=== PATIENT | male | born 1945 | race Caucasian/White ===

== ENCOUNTER → 2017-07-28 | Outpatient (CLI) | payer OTHER ==
[~2017-07-28] MED LIST: ASPI-496 PO; INSU100V12 SC; LISI-167 PO; METF500T4 PO; PRAV40TA2 PO
== END | disposition home or self-care (01) ==
LOC: CVU 09:14
PROVIDERS: ATTEND Surgery Vascular Surgery
DX: I65.23 Occlusion and stenosis of bilateral carotid arteries (principal); I10 Essential (primary) hypertension; E11.9 Type 2 diabetes mellitus without complications; E78.00 Pure hypercholesterolemia, unspecified; M79.89 Other specified soft tissue disorders; Z87.891 Personal history of nicotine dependence
CPT/HCPCS: 93880

== ENCOUNTER 2018-04-26 14:59 | Inpatient (IN) | payer OTHER ==
[~2018-04-26] VITALS: Ht 182.9 cm; Wt 88.4 kg
[~2018-04-26 14:59] MED LIST changes: -METF500T4 PO; +METF500T5 PO
[2018-04-26] MEDS ORDERED: SODIUM CHLORIDE 0.9% 1,000ML IVBOLUS ONE (16:00)
[2018-04-26] MEDS ORDERED: SODIUM CHLORIDE FLUSH 10ML SYR IVF ONE (16:00)
[2018-04-26 16:07] LABS: BASOPHILS # (AUTO) 0.03 x10^3/uL (0-0.1); BASOPHILS % (AUTO) 0 % (0-1); EOSINOPHILS # (AUTO) 0.08 x10^3/uL (0-0.4); EOSINOPHILS % (AUTO) 1 % (1-7); LYMPHOCYTES # (AUTO) 0.83 x10^3/uL (1-3.4); LYMPHOCYTES % (AUTO) 7 % (22-44); MD NO; MEAN CORPUSCULAR HEMOGLOBIN 32.3 pg (27.5-34.5); MEAN CORPUSCULAR HGB CONC 34.1 g/dL (33.2-36.2); MEAN CORPUSCULAR VOLUME 94.7 fL (81-97); MEAN PLATELET VOLUME 7.6 fL (7.4-10.4); MONOCYTES # (AUTO) 0.63 x10^3/uL (0.2-0.8); MONOCYTES % (AUTO) 5 % (2-9); NEUTROPHILS # (AUTO) 11.32 x10^3/uL (1.8-6.8); NEUTROPHILS % (AUTO) 88 % (42-75); PLATELET COUNT 267 x10^3/uL (130-400); RED BLOOD COUNT 3.67 x10^6/uL (4.38-5.82); RED CELL DISTRIBUTION WIDTH 13.3 % (9.4-14.8)
[2018-04-26 16:16] LABS: INTERNATIONAL NORMALIZED RATIO 0.98 (0.93-1.1); PROTHROMBIN TIME 10.1 Seconds (9.6-11.5)
[2018-04-26 16:18] LABS: ALBUMIN 3.5 g/dL (3.4-5.0); ANION GAP 6 mmol/L (5-15); CALCIUM 8.6 mg/dL (8.5-10.1); CHLORIDE 109 mmol/L (98-107)
[2018-04-26 16:23] LABS: ALANINE AMINOTRANSFERASE 22 U/L (12-78); ALKALINE PHOSPHATASE 125 U/L (45-117); BILIRUBIN,TOTAL 0.4 mg/dL (0.2-1.0); CREATININE 2.24 mg/dL (0.7-1.3); TOTAL PROTEIN 6.8 g/dL (6.4-8.2); TROPONIN I < 0.015 ng/mL (0.000-0.045)
[2018-04-26] MEDS ORDERED: NOVOLOG MIX SC (16:51)
[2018-04-26 18:13] LABS: FREE T4 (FREE THYROXINE) 0.94 ng/dL (0.76-1.46); TROPONIN I < 0.015 ng/mL (0.000-0.045)
[2018-04-26 18:25] VITALS: BP 137/70
[2018-04-26] MEDS ORDERED: DEXTROSE 4 GM TAB.CHEW PO PRN (18:30)
[2018-04-26] MEDS ORDERED: POLYETHYLENE GLYCOL 17 GM PACKET PO PRN (18:30)
[2018-04-26] MEDS ORDERED: ONDANSETRON 2MG/ML, 2ML IVPush PRN (18:30)
[2018-04-26] MEDS ORDERED: GUAIFENESIN/DM 200-20MG, 10ML UDC PO PRN (18:30)
[2018-04-26] MEDS ORDERED: GLUCAGON 1 MG IM PRN (18:30)
[2018-04-26] MEDS ORDERED: morphine SULFATE 10 MG/ML, 1ML IVPush PRN (18:30)
[2018-04-26] MEDS ORDERED: DEXTROSE 50%, 50ML SYRINGE IVPush PRN (18:30)
[2018-04-26] MEDS ORDERED: ONDANSETRON ODT 4 MG PO PRN (18:30)
[2018-04-26] MEDS ORDERED: LABETALOL 5MG/ML, 20ML IVPush PRN (18:30)
[2018-04-26] MEDS: HYDROcodone/APAP 5/325 TABLET PO PRN (18:46)
[2018-04-26] MEDS: SODIUM CHLORIDE 0.9% 1,000 ML IV SCH (19:51)
[2018-04-26] MEDS: HEPARIN 5,000 UNITS/ML, 1ML SQ SCH (19:51)
[2018-04-26 20:00] VITALS: BP 140/62
[2018-04-26] MEDS: PRAVASTATIN 40 MG TABLET PO SCH (21:37)
[2018-04-26] MEDS: SODIUM CHLORIDE FLUSH 10ML SYR IVF SCH (21:37)
[2018-04-26] MEDS: INSULIN LISPRO 100 UNITS/ML, PEN SQ-INSULIN SCH (21:39)
[2018-04-26 21:47] VITALS: BP 129/64
[2018-04-26 23:32] LABS: TROPONIN I < 0.015 ng/mL (0.000-0.045)
[2018-04-26 23:46] LABS: MICROSCOPIC NOT IND
[2018-04-26 23:47] LABS: CULTURE INDICATED? NO
[2018-04-26 23:58] LABS: CREATININE,URINE RANDOM 68.1 mg/dL
[2018-04-27] VITALS (11 sets, daily range): BP systolic 117–158; BP diastolic 63–76
[2018-04-27] MEDS: HEPARIN 5,000 UNITS/ML, 1ML SQ SCH ×3 (02:39→17:33)
[2018-04-27] MEDS: SODIUM CHLORIDE 0.9% 1,000 ML IV SCH ×2 (02:39→10:26)
[2018-04-27] MEDS: HYDROcodone/APAP 5/325 TABLET PO PRN ×4 (02:42→18:19)
[2018-04-27 05:40] LABS: ALANINE AMINOTRANSFERASE 21 U/L (12-78); ALBUMIN 3.2 g/dL (3.4-5.0); ANION GAP 11 mmol/L (5-15); CALCIUM 8.6 mg/dL (8.5-10.1); CHLORIDE 107 mmol/L (98-107); CREATININE 1.76 mg/dL (0.7-1.3)
[2018-04-27 05:42] LABS: ALKALINE PHOSPHATASE 117 U/L (45-117); BILIRUBIN,TOTAL 0.3 mg/dL (0.2-1.0); TOTAL PROTEIN 6.4 g/dL (6.4-8.2)
[2018-04-27 06:00] LABS: BASOPHILS # (AUTO) 0.01 x10^3/uL (0-0.1); BASOPHILS % (AUTO) 0 % (0-1); EOSINOPHILS # (AUTO) 0.02 x10^3/uL (0-0.4); EOSINOPHILS % (AUTO) 0 % (1-7); LYMPHOCYTES # (AUTO) 0.79 x10^3/uL (1-3.4); LYMPHOCYTES % (AUTO) 9 % (22-44); MD NO; MEAN CORPUSCULAR HEMOGLOBIN 32.1 pg (27.5-34.5); MEAN CORPUSCULAR VOLUME 94.4 fL (81-97); MEAN PLATELET VOLUME 7.9 fL (7.4-10.4); MONOCYTES # (AUTO) 0.75 x10^3/uL (0.2-0.8); MONOCYTES % (AUTO) 9 % (2-9); NEUTROPHILS # (AUTO) 7.29 x10^3/uL (1.8-6.8); NEUTROPHILS % (AUTO) 82 % (42-75); PLATELET COUNT 239 x10^3/uL (130-400); RED BLOOD COUNT 3.54 x10^6/uL (4.38-5.82); RED CELL DISTRIBUTION WIDTH 13.3 % (9.4-14.8)
[2018-04-27] MEDS: ASPIRIN 81 MG TABLET EC PO SCH (07:53)
[2018-04-27] MEDS: INSULIN LISPRO 100 UNITS/ML, PEN SQ-INSULIN SCH ×4 (07:54→20:01)
[2018-04-27] MEDS: SODIUM CHLORIDE FLUSH 10ML SYR IVF SCH ×2 (07:56→20:02)
[2018-04-27] MEDS: SENNA/DOCUSATE TABLET PO SCH (07:56)
[2018-04-27] MEDS ORDERED: REGADENOSON 0.4 MG/5 ML SYRINGE ONE (11:44)
[2018-04-27] MEDS: D5%-0.45% NACL 1,000 ML IV SCH (13:35)
[2018-04-27] MEDS: PRAVASTATIN 40 MG TABLET PO SCH (20:00)
[2018-04-28] MEDS: HYDROcodone/APAP 5/325 TABLET PO PRN ×3 (00:35→08:27)
[2018-04-28 01:35] VITALS: BP 149/75
[2018-04-28] MEDS: D5%-0.45% NACL 1,000 ML IV SCH (02:08)
[2018-04-28] MEDS: HEPARIN 5,000 UNITS/ML, 1ML SQ SCH ×2 (02:09→09:43)
[2018-04-28 05:38] LABS: BASOPHILS # (AUTO) 0.02 x10^3/uL (0-0.1); BASOPHILS % (AUTO) 0 % (0-1); EOSINOPHILS # (AUTO) 0.11 x10^3/uL (0-0.4); EOSINOPHILS % (AUTO) 2 % (1-7); LYMPHOCYTES # (AUTO) 0.94 x10^3/uL (1-3.4); LYMPHOCYTES % (AUTO) 13 % (22-44); MD NO; MEAN CORPUSCULAR HEMOGLOBIN 32.3 pg (27.5-34.5); MEAN CORPUSCULAR HGB CONC 33.7 g/dL (33.2-36.2); MEAN CORPUSCULAR VOLUME 95.8 fL (81-97); MEAN PLATELET VOLUME 7.7 fL (7.4-10.4); MONOCYTES # (AUTO) 0.78 x10^3/uL (0.2-0.8); MONOCYTES % (AUTO) 11 % (2-9); NEUTROPHILS # (AUTO) 5.21 x10^3/uL (1.8-6.8); NEUTROPHILS % (AUTO) 74 % (42-75); PLATELET COUNT 234 x10^3/uL (130-400); RED BLOOD COUNT 3.49 x10^6/uL (4.38-5.82); RED CELL DISTRIBUTION WIDTH 12.9 % (9.4-14.8)
[2018-04-28 05:46] LABS: ALBUMIN 3.2 g/dL (3.4-5.0); ANION GAP 7 mmol/L (5-15); CALCIUM 8.2 mg/dL (8.5-10.1); CHLORIDE 108 mmol/L (98-107)
[2018-04-28 05:48] LABS: CREATININE 1.73 mg/dL (0.7-1.3)
[2018-04-28] MEDS: ASPIRIN 81 MG TABLET EC PO SCH (07:36)
[2018-04-28] MEDS: SODIUM CHLORIDE FLUSH 10ML SYR IVF SCH (07:37)
[2018-04-28] MEDS: INSULIN LISPRO 100 UNITS/ML, PEN SQ-INSULIN SCH (07:38)
[2018-04-28] MEDS: SENNA/DOCUSATE TABLET PO SCH (07:38)
[2018-04-28 08:09] LABS: HEMOGLOBIN A1C 8.8 % (4.2-6.3)
[2018-04-28 08:14] VITALS: BP_SYST 119; BP_SYST 123; BP_SYST 149; BP_DIAS 63; BP_DIAS 66; BP_DIAS 73
[2018-04-28] MEDS ORDERED: AMLODIPINE 2.5 MG TABLET PO SCH (09:30)
[2018-04-28] MEDS ORDERED: CHOL400T12 PO (10:48)
[2018-04-28] MEDS ORDERED: AMLO2.5T PO (10:49)
== END 2018-04-28 11:40 | disposition home or self-care (01) | DRG 73 ==
LOC: ED 16:32 → EDIP 17:14 → 4WST 18:06 → DCLOUNGE 04-28 11:35
PROVIDERS: ADMIT Internal Medicine; ATTEND Internal Medicine
DX: G90.8 Other disorders of autonomic nervous system (principal); N17.0 Acute kidney failure with tubular necrosis; R55 Syncope and collapse; W18.30XA Fall on same level, unspecified, initial encounter; E11.22 Type 2 diabetes mellitus with diabetic chronic kidney disease; E78.5 Hyperlipidemia, unspecified; I12.9 Hypertensive chronic kidney disease with stage 1 through stage 4 chronic kidney disease, or unspecified chronic kidney disease; N18.9 Chronic kidney disease, unspecified; D64.9 Anemia, unspecified; M54.9 Dorsalgia, unspecified; Z87.891 Personal history of nicotine dependence; Y93.89 Activity, other specified; Y92.89 Other specified places as the place of occurrence of the external cause; Y99.8 Other external cause status
CPT/HCPCS: 36415; 70450; 71250; 72110; 78452; 80048; 80053; 81003; 82040; 82306; 82436; 82570; 82962; 83036; 83690; 83735; 83880; 84100; 84133; 84300; 84439; 84443; 84484; 85025; 85610; 85730; 93005; 93017; 93306; 93880; 96360; 96361; J1644; J2785; A9502; C9898; J2270; J7030

== ENCOUNTER → 2018-05-12 | Outpatient (CLI) | payer OTHER ==
[~2018-05-12] MED LIST changes: +AMLO2.5T PO; +CHOL400T12 PO; +NOVOLOG MIX SC
== END | disposition home or self-care (01) ==
LOC: RAD 11:54
PROVIDERS: ATTEND Family Medicine
DX: M16.11 Unilateral primary osteoarthritis, right hip (principal); W19.XXXD Unspecified fall, subsequent encounter

== ENCOUNTER → 2019-11-25 | Outpatient (CLI) | payer MEDICARE, OTHER ==
[~2019-11-25] MED LIST changes: -AMLO2.5T PO; +AMLO2.5T5 PO; +METF500T17 PO; -METF500T5 PO
== END | disposition home or self-care (01) ==
LOC: CFH 13:28
PROVIDERS: ATTEND Surgery
DX: E04.1 Nontoxic single thyroid nodule (principal); E07.89 Other specified disorders of thyroid
CPT/HCPCS: 76536

== ENCOUNTER → 2019-12-22 | Outpatient (CLI) | payer MEDICARE ==
[~2019-12-22] MED LIST changes: +FINA5TAB4 PO; +INSU100I13 SQ; +INSU100V8 SQ; +NPH,100I4 SQ; +PROLASTIN PO; +SEMA1PEN SQ; +TAMS-11 PO
[2019-12-22 09:28] LABS: BASOPHILS # (AUTO) 0.02 x10^3/uL (0-0.1); BASOPHILS % (AUTO) 0 % (0-1); EOSINOPHILS # (AUTO) 0.17 x10^3/uL (0-0.4); EOSINOPHILS % (AUTO) 2 % (1-7); LYMPHOCYTES # (AUTO) 1.26 x10^3/uL (1-3.4); LYMPHOCYTES % (AUTO) 14 % (22-44); MD NO; MEAN CORPUSCULAR HEMOGLOBIN 32.6 pg (27.5-34.5); MEAN CORPUSCULAR HGB CONC 33.6 g/dL (33.2-36.2); MEAN CORPUSCULAR VOLUME 97.2 fL (81-97); MEAN PLATELET VOLUME 7.4 fL (7.4-10.4); MONOCYTES # (AUTO) 0.67 x10^3/uL (0.2-0.8); MONOCYTES % (AUTO) 8 % (2-9); NEUTROPHILS # (AUTO) 6.92 x10^3/uL (1.8-6.8); NEUTROPHILS % (AUTO) 77 % (42-75); PLATELET COUNT 280 x10^3/uL (130-400); RED BLOOD COUNT 4.11 x10^6/uL (4.38-5.82); RED CELL DISTRIBUTION WIDTH 13.2 % (9.4-14.8)
[2019-12-22 09:33] LABS: INTERNATIONAL NORMALIZED RATIO 0.95 (0.93-1.1); PROTHROMBIN TIME 10.1 Seconds (9.6-11.5)
[2019-12-22 09:35] LABS: ALANINE AMINOTRANSFERASE 27 U/L (12-78); ALBUMIN 3.6 g/dL (3.4-5.0); ANION GAP 6 mmol/L (5-15); CALCIUM 9.4 mg/dL (8.5-10.1); CHLORIDE 105 mmol/L (98-107); CREATININE 1.66 mg/dL (0.7-1.3)
[2019-12-22 09:40] LABS: ALKALINE PHOSPHATASE 180 U/L (45-117); BILIRUBIN,TOTAL 0.2 mg/dL (0.2-1.0); PSA SCREEN 0.36 ng/mL (0.00-4.00); TOTAL PROTEIN 7.6 g/dL (6.4-8.2)
[2019-12-22 12:31] LABS: MICROSCOPIC AUTO
== END | disposition home or self-care (01) ==
LOC: STAR 08:29
PROVIDERS: ATTEND Student in an Organized Health Care Education/Training Program
DX: Z01.818 Encounter for other preprocedural examination (principal); Z12.5 Encounter for screening for malignant neoplasm of prostate; N40.1 Benign prostatic hyperplasia with lower urinary tract symptoms
CPT/HCPCS: 36415; 80053; 81001; 84153; 85025; 85610; 85730; 87086; 87147; 93005; G0103

== ENCOUNTER 2019-12-29 08:18 | Day surgery (SDC) | payer MEDICARE ==
[~2019-12-29] VITALS: Ht 182.9 cm; Wt 89.3 kg
[2019-12-29] MEDS ORDERED: LACTATED RINGERS 1,000 ML IV SCH (08:45)
[2019-12-29 08:48] VITALS: BP 144/91
[2019-12-29] MEDS ORDERED: PROPOFOL 50 ML ONE (09:56)
[2019-12-29] MEDS ORDERED: FENTANYL PF 250 MCG/5ML ONE (09:56)
[2019-12-29] MEDS ORDERED: CEFAZOLIN 1,000 MG ONE ×2 (10:12)
[2019-12-29] MEDS ORDERED: OXYcodone 5 MG/5 ML ORAL.SOL UDC PO PRN (10:30)
[2019-12-29] MEDS ORDERED: EPHEDRINE 50 MG/ML, 1ML IVPush PRN (10:30)
[2019-12-29] MEDS ORDERED: EPHEDRINE 50 MG/ML, 1ML IM PRN (10:30)
[2019-12-29] MEDS ORDERED: FENTANYL PF 100 MCG/2ML IV PRN (10:30)
[2019-12-29] MEDS ORDERED: LABETALOL 5MG/ML, 20ML IV PRN (10:30)
[2019-12-29] MEDS ORDERED: ONDANSETRON 2MG/ML, 2ML IV PRN (10:30)
[2019-12-29] MEDS ORDERED: ONDANSETRON ODT 8 MG PO PRN (10:30)
[2019-12-29] MEDS ORDERED: MORPHINE SULFATE 4 MG/ML, 1ML IVPush PRN (10:30)
[2019-12-29] MEDS ORDERED: MIDAZOLAM 1 MG/ML, 2ML IV PRN (10:30)
[2019-12-29] MEDS ORDERED: DIPHENHYDRAMINE 50 MG/ML, 1ML IM PRN (10:30)
[2019-12-29] MEDS ORDERED: PROMETHAZINE 25 MG/ML, 1ML IV PRN (10:30)
[2019-12-29] MEDS ORDERED: ACETAMINOPHEN 325 MG TABLET PO PRN (10:30)
[2019-12-29] MEDS ORDERED: ONDANSETRON 2MG/ML, 2ML ONE (10:32)
[2019-12-29] MEDS ORDERED: PROPOFOL 10 MG/ML, 20ML ONE (10:33)
== END 2019-12-29 14:00 | disposition home or self-care (01) ==
LOC: OUT 08:18
PROVIDERS: ATTEND Student in an Organized Health Care Education/Training Program
DX: N40.1 Benign prostatic hyperplasia with lower urinary tract symptoms (principal); R33.8 Other retention of urine; N42.0 Calculus of prostate; N35.812 Other bulbous urethral stricture, male; E78.00 Pure hypercholesterolemia, unspecified; M19.90 Unspecified osteoarthritis, unspecified site; E11.22 Type 2 diabetes mellitus with diabetic chronic kidney disease; I12.9 Hypertensive chronic kidney disease with stage 1 through stage 4 chronic kidney disease, or unspecified chronic kidney disease; N18.3 Chronic kidney disease, stage 3 (moderate); I65.23 Occlusion and stenosis of bilateral carotid arteries; Z79.84 Long term (current) use of oral hypoglycemic drugs; Z79.4 Long term (current) use of insulin; Z79.82 Long term (current) use of aspirin; Z79.899 Other long term (current) drug therapy; Z87.891 Personal history of nicotine dependence; Z98.52 Vasectomy status; Z90.89 Acquired absence of other organs
CPT/HCPCS: 52648; 82962; J0690; J2405; J2704; J3010

== ENCOUNTER 2020-02-01 07:51 | Emergency (ER) | payer MEDICARE ==
[~2020-02-01] VITALS: Ht 182.9 cm; Wt 88.8 kg
--- NOTE | 2020-02-01 08:03 | NUR ---
PT AMBULATED TO ROOM WITH TECH. STEADY GAIT.
--- NOTE | 2020-02-01 08:04 | NUR ---
PT PRESENTED TO ED D/T BLOOD CLOTS IN URINE X3 DAYS. PT STATES RECENTLY HAD BLADDER RESECTION SURGERY ON 12/27. PT DENIES ANY PAIN OR SWELLING.
[2020-02-01] MEDS ORDERED: DOCU-144 PO (08:11)
[2020-02-01] MEDS ORDERED: SEMA0.25 SQ-INSULIN (08:11)
[2020-02-01] MEDS ORDERED: INSU100V8 SQ (08:11)
[2020-02-01] MEDS ORDERED: NPH,100I4 SQ-INSULIN (08:11)
--- NOTE | 2020-02-01 08:13 | NUR ---
ERMD AT BEDSIDE EVALUATING PT.
[2020-02-01] MEDS ORDERED: LIDOCAINE 2%,20 ML JEL.PF.APP MM ONE ×2 (08:26→08:30)
[2020-02-01 08:39] LABS: BASOPHILS # (AUTO) 0.01 x10^3/uL (0-0.1); BASOPHILS % (AUTO) 0 % (0-1); EOSINOPHILS # (AUTO) 0.16 x10^3/uL (0-0.4); EOSINOPHILS % (AUTO) 1 % (1-7); LYMPHOCYTES # (AUTO) 1.01 x10^3/uL (1-3.4); LYMPHOCYTES % (AUTO) 8 % (22-44); MD NO; MEAN CORPUSCULAR HGB CONC 33.7 g/dL (33.2-36.2); MEAN PLATELET VOLUME 7.3 fL (7.4-10.4); MONOCYTES % (AUTO) 7 % (2-9); NEUTROPHILS # (AUTO) 10.22 x10^3/uL (1.8-6.8); NEUTROPHILS % (AUTO) 83 % (42-75); PLATELET COUNT 288 x10^3/uL (130-400)
[2020-02-01 08:44] LABS: ANION GAP 10 mmol/L (5-15); CHLORIDE 104 mmol/L (98-107)
--- NOTE | 2020-02-01 08:47 | NUR ---
[address] ARMSTRONG CATH INSERTED PER ERMD ORDERS. CHARLY BABIN ASSISTED RN. URINE SAMPLE OBTAINED AND SENT TO LAB.
--- NOTE | 2020-02-01 09:04 | NUR ---
REPORT TO CHARLY SHEIKH.
[2020-02-01 09:12] LABS: MICROSCOPIC INDICATED
--- NOTE | 2020-02-01 09:16 | NUR ---
report received at bedside from CHARLY Hurtado. pt is resting on gurney, resps even and unlabored, nadn. clear yellow urine flowing freely from cath. awaiting urine results and dispo at this time.
[2020-02-01 09:17] LABS: CULTURE INDICATED? YES
[2020-02-01] MEDS ORDERED: CEFDINIR 300 MG CAPSULE PO ONE (09:30)
[2020-02-01] MEDS ORDERED: CEFDINIR 300 MG CAPSULE ONE (09:43)
[2020-02-01 09:51] VITALS: BP 142/70
--- NOTE | 2020-02-01 09:51 | NUR ---
BREAK RN: MEDICATION ADMINISTERED PER EMAR. RN TO REMOVE ARMSTRONG CATHETER BEFORE PT GETS DISCHARGED.
--- NOTE | 2020-02-01 10:01 | NUR ---
TASK RN: PT DISCHARGED HOME IN A STABLE CONDITION. DC INSTRUCTIONS WERE DISCUSSED WITH PT. PT VERBALIZED UNDERSTANDING. NO FURTHER QUESTIONS OR CONCERNS WERE EXPRESSED AT THAT TIME. PT AMBULATED WITH RN TO DC DESK. STEADY GAIT.
== END 2020-02-01 10:03 | disposition home or self-care (01) ==
LOC: ED 08:19
DX: N30.01 Acute cystitis with hematuria (principal); N13.9 Obstructive and reflux uropathy, unspecified
CPT/HCPCS: 36415; 51700; 80048; 81001; 85025; 87086; 87147; 99283; 99284

== ENCOUNTER 2021-02-03 10:06 | Emergency (ER) | payer MEDICARE ==
[~2021-02-03] VITALS: Ht 182.9 cm; Wt 89.8 kg
[~2021-02-03 10:06] MED LIST changes: +DOCU-144 PO; +NPH,100I4 SQ-INSULIN; +SEMA0.25 SQ-INSULIN
--- NOTE | 2021-02-03 10:29 | NUR ---
PT AMBULATED TO ROOM FROM LOBBY WITH UPRIGHT STEADY GAIT. AT BS. PT CHANGED INTO GOWN, MONITORS IN PLACE. PA AT BS
[2021-02-03 11:11] LABS: BASOPHILS % (AUTO) 0 % (0-1); EOSINOPHILS % (AUTO) 0 % (1-7); LYMPHOCYTES % (AUTO) 5 % (22-44); MEAN CORPUSCULAR HGB CONC 34.4 g/dL (33.2-36.2); MEAN PLATELET VOLUME 7.7 fL (7.4-10.4); MONOCYTES % (AUTO) 6 % (2-9); NEUTROPHILS % (AUTO) 89 % (42-75); PLATELET COUNT 231 x10^3/uL (130-400); RED BLOOD COUNT 3.88 x10^6/uL (4.38-5.82); RED CELL DISTRIBUTION WIDTH 12.9 % (9.4-14.8)
[2021-02-03] MEDS ORDERED: OMNIPAQUE 350 MG/ML, 100ML BOTTLE ONE (11:15)
[2021-02-03 11:19] LABS: ALANINE AMINOTRANSFERASE 17 U/L (12-78); ALBUMIN 4.1 g/dL (3.4-5.0); ANION GAP 7 mmol/L (5-15); CALCIUM 9.7 mg/dL (8.5-10.1); CHLORIDE 104 mmol/L (98-107); CREATININE 1.79 mg/dL (0.7-1.3)
[2021-02-03 11:24] LABS: ALKALINE PHOSPHATASE 144 U/L (45-117); BILIRUBIN,TOTAL 0.6 mg/dL (0.2-1.0); TOTAL PROTEIN 7.8 g/dL (6.4-8.2); TROPONIN I < 0.015 ng/mL (0.000-0.045)
--- NOTE | 2021-02-03 11:24 | NUR ---
PT TO CT
[2021-02-03 11:36] LABS: MD SCAN
[2021-02-03 11:38] LABS: MICROSCOPIC NOT IND
[2021-02-03 12:51] VITALS: BP 141/57
--- NOTE | 2021-02-03 12:52 | NUR ---
PatienT given discharge instructions and they have confirmed that they understand the instructions. Patient ambulatory with steady gait.
== END 2021-02-03 12:55 | disposition home or self-care (01) ==
LOC: ED 12:45
DX: R19.7 Diarrhea, unspecified (principal); R10.9 Unspecified abdominal pain; R10.2 Pelvic and perineal pain; R11.0 Nausea; I10 Essential (primary) hypertension; E11.9 Type 2 diabetes mellitus without complications; Z87.891 Personal history of nicotine dependence; Z79.899 Other long term (current) drug therapy
CPT/HCPCS: 36415; 74177; 80053; 81003; 83690; 84484; 85025; 93005; 99285; Q9967